=== PATIENT | male | born 1955 ===

== ENCOUNTER 2018-01-01 08:03 | Outpatient (CLI) | payer OTHER ==
[~2018-01-01 08:03] MED LIST: ECOTRIN81 MG
== END 2018-01-01 08:15 | disposition home or self-care (01) ==
LOC: SONOGRAMA 08:03 → MAMO-SONO 08:15
DX: N40.0 Benign prostatic hyperplasia without lower urinary tract symptoms (principal); R31.9 Hematuria, unspecified; E03.8 Other specified hypothyroidism; E04.8 Other specified nontoxic goiter

== ENCOUNTER 2018-01-11 14:46 | Outpatient (CLI) | payer OTHER | END 2018-01-11 14:47 | disposition home or self-care (01) | LOC: LAB 14:46 | DX: E03.8 Other specified hypothyroidism (principal); D50.8 Other iron deficiency anemias; E04.1 Nontoxic single thyroid nodule; D59.8 Other acquired hemolytic anemias ==